=== PATIENT | male | born 1990 | race Caucasian/White ===

== ENCOUNTER 2017-09-28 17:52 | Emergency (ER) | payer SELFPAY ==
--- NOTE | 2017-09-28 17:59 | EDPHY ---
H & P Time Seen by Provider: 09/28/17 17:57 HPI/ROS: Chief complaint. Allergic reaction HPI. 27-year-old male presents with generalized hives. At 3:30 p.m. The patient started sneezing. He then had facial swelling. Then developed generalized redness and hives. No trouble breathing or swallowing. He took a Benadryl prior to arrival. He has allergies to dust and pollen. He thinks it is related to a smoothie that he drank about 2 hr before. ROS Constitutional. no fever/chills, no weakness Eyes. no problems with vision ENT. Facial swelling Cardiovascular. no chest pain Respiratory. no shortness of breath, no cough Abdominal. no abdominal pain, no nausea/vomiting, no diarrhea . no problems urinating MS. no calf pain/swelling, no neck/back pain, no joint pain Skin. Generalized maculopapular hives and erythema Lymph. no swollen glands Neuro. no headache, no dizziness, no difficulty walking or with speech Past Medical/Surgical History: Healthy Social History: Single, nonsmoker, no alcohol Physical Exam: General Appearance: Alert well-developed male stable vital signs moderate distress Eyes: Pupils equal and round no pallor or injection. ENT, facial swelling with periorbital edema. Pharynx without injection. There is no stridor. He is handling secretions and speaking in full sentences Respiratory: There are no retractions, lungs are clear to auscultation. Cardiovascular: Regular rate and rhythm. Gastrointestinal: Abdomen is soft and nontender, no masses, bowel sounds normal. Neurological: Awake and alert, sensory and motor exams grossly normal. Skin: Generalized erythema and hives Musculoskeletal: Neck is supple nontender. Extremities symmetrical, full range of motion. Psychiatric: Patient is oriented X 3, there is no agitation. Constitutional: Initial Vital Signs Temperature (C) 36.6 C 09/28/17 17:57 Heart Rate 84 09/28/17 17:57 Respiratory Rate 20 09/28/17 17:57 Blood Pressure 129/93 H 09/28/17 17:57 O2 Sat (%) 97 09/28/17 17:57 O2 Delivery Mode Room Air Allergies/Adverse Reactions: No Known Allergies Allergy (Unverified 09/28/17 17:57) Home Medications: Medication Instructions Recorded Finasteride 09/28/17 predniSONE 40 mg PO DAILY #6 tablet 09/28/17 Medical Decision Making Procedures: IV normal saline. IV Pepcid, Solu-Medrol. Epinephrine IM Serial re-evaluations-- Re-evaluation again at 7:30 p.m.--patient improving. He feels well to go home. He speaking in full sentences without stridor or shortness of breath. His rash is much improved ED Course/Re-evaluation: Patient is stable Differential Diagnosis: I have considered food and environmental allergies. I considered anaphylaxis. Patient has hives and facial swelling - Data Points Medications Given: Discontinued Medications Epinephrine HCl (Epinephrine) 0.3 mg IM EDNOW ONE Stop: 09/28/17 18:44 Last Admin: 09/28/17 19:05 Dose: 0.3 mg Sodium Chloride (Ns) 1,000 mls @ 0 mls/hr IV ONCE ONE; Wide Open PRN Reason: Protocol Stop: 09/28/17 18:44 Last Admin: 09/28/17 19:06 Dose: 1,000 mls Methylprednisolone Sodium Succinate (Solu-Medrol) 125 mg IVP EDNOW ONE Stop: 09/28/17 18:44 Last Admin: 09/28/17 19:06 Dose: 125 mg Ranitidine HCl (Zantac) 50 mg IVP EDNOW ONE Stop: 09/28/17 18:44 Last Admin: 09/28/17 19:10 Dose: Not Given Ranitidine HCl (Zantac) 50 mg IVP EDNOW ONE Stop: 09/28/17 18:45 Last Admin: 09/28/17 19:06 Dose: 50 mg Departure - Departure Disposition: Home, Routine, Self-Care Clinical Impression: Allergic reaction Qualifiers: Encounter type: initial encounter Qualified Code(s): T78.40XA - Allergy, unspecified, initial encounter Condition: Good Instructions: Urticaria (ED) Additional Instructions: Take prednisone tomorrow when you fill the prescription. Prednisone daily for 3 days. May use Benadryl in addition. Return for worsening symptoms. Follow up with appliance repair technician for testing Referrals: Patient,NotPresent [Unknown] - As per Instructions Alison Trevino MD [[facility] [place] Primary Care Provider] - 5-7 days, call for appt. Prescriptions: predniSONE 40 mg PO DAILY #6 tablet
[2017-09-28] MEDS ORDERED: ONDANSETRON 4 MG/2 ML VIAL ONE (18:09)
[2017-09-28] MEDS ORDERED: NS 1,000 ML IV ONE (18:43)
[2017-09-28] MEDS ORDERED: methylPREDNISolone SOD SUCC 125 MG/2 ML VIAL IVP ONE (18:43)
[2017-09-28] MEDS ORDERED: EPINEPHrine 1 MG/ML INJ IM ONE (18:43)
[2017-09-28] MEDS ORDERED: RANITIDINE 50 MG/2 ML VIAL IVP ONE ×2 (18:43→18:44)
[2017-09-28 19:48] VITALS: BP 119/52
== END 2017-09-28 19:47 | disposition home or self-care (01) ==
DX: T78.1XXA Other adverse food reactions, not elsewhere classified, initial encounter (principal); E86.9 Volume depletion, unspecified
CPT/HCPCS: 96374; J2405